=== PATIENT | female | born 1950 | race Caucasian/White ===

== ENCOUNTER 2020-07-06 10:27 | Outpatient (CLI) | payer MEDICARE, BC | END 2020-07-06 10:28 | disposition home or self-care (01) | LOC: CSHMRI 10:27 | PROVIDERS: ATTEND Specialist | DX: M51.17 Intervertebral disc disorders with radiculopathy, lumbosacral region (principal); M47.816 Spondylosis without myelopathy or radiculopathy, lumbar region | CPT/HCPCS: 72148 ==

== ENCOUNTER 2025-03-22 10:08 | Emergency (ER) | payer MEDICARE ==
[2025-03-22 11:10] LABS: #Basophils 0.04 10x3/uL (0.0-0.2); #Eosinophils Less than 0.03 10x3/uL (0.0-0.5); #Monocytes 0.15 10x3/uL (0.0-1.1); #Neutrophils 4.76 10x3/uL (1.5-8.4); %Basophils 0.7 % (0.0-2.0); %Eosinophils 0.3 % (0.0-6.0); %Lymphocytes 16.2 % (18.0-47.0); %Monocytes 2.5 % (0.0-10.0); %Neutrophils 79.8 % (40.0-75.0); Hematocrit 38.8 % (34.9-44.5); Hemoglobin 13.1 g/dL (12.0-15.5); Mean Corpuscular Hemoglobin 30.8 pg (27.0-33.0); Mean Corpuscular Volume 91.1 fL (81.6-98.3); Red Blood Cell (RBC) Count 4.26 10x6/uL (3.90-5.03); White Blood Cell (WBC) Count 5.97 10x3/uL (3.5-10.5)
[2025-03-22 11:24] LABS: ALT (SGPT) 32 U/L (Less than 34); AST (SGOT) 71 U/L (11-34); Albumin 4.0 g/dL (3.1-4.5); Alkaline Phosphatase 48 U/L (40-110); Anion Gap 14 mmol/L (10-20); BUN (Urea Nitrogen) 23 mg/dL (9.8-20.1); Bilirubin, Total 0.4 mg/dL (0.3-1.2); CK (CPK) 42 U/L (29-168); Calc. Creatinine Clearance 0 mL/min (70-130); Calcium 9.8 mg/dL (7.8-10.44); Carbon Dioxide 14 mmol/L (23-31); Chloride 110 mmol/L (98-107); Globulin 3.5 g/dL (2.4-3.5); Glucose 163 mg/dL (83-110); Potassium 4.6 mmol/L (3.5-5.1); Sodium 133 mmol/L (136-145)
[2025-03-22] MEDS ORDERED: Fluconazole 100 MG TAB PO SCH (12:15)
== END 2025-03-22 12:12 | disposition home or self-care (01) ==
LOC: CSHERS 10:08
DX: B35.4 Tinea corporis (principal); L03.211 Cellulitis of face; E03.9 Hypothyroidism, unspecified; E78.5 Hyperlipidemia, unspecified; I10 Essential (primary) hypertension; Z79.890 Hormone replacement therapy; Z79.899 Other long term (current) drug therapy
CPT/HCPCS: 36415; 80053; 82550; 83605; 85025; 99283

== ENCOUNTER 2025-03-27 14:26 | Outpatient (CLI) | payer MEDICARE | END 2025-03-27 14:27 | disposition home or self-care (01) | LOC: CSHWCC 14:26 | PROVIDERS: ATTEND Nurse Practitioner Family | DX: B35.9 Dermatophytosis, unspecified (principal) | CPT/HCPCS: 99212; G0463 ==